=== PATIENT | male | born 1940 | race Caucasian/White ===

== ENCOUNTER → 2017-07-01 | Outpatient (CLI) | payer MEDICARE, OTHER ==
[~2017-07-01] VITALS: Ht 185.4 cm; Wt 78.1 kg
[~2017-07-01] MED LIST: ASPI81CH37 CHEW; CHLORHEXIDINE GLUCONATE 2 % 1 PACK (2 CLOTHS) TOPICAL PRN; DEXTROSE 5% IN WATE 1000ML INJ 1,000 ML IV SCH; INSULIN HUMAN REGULAR 1,000 UNITS/10 ML VIAL SQ PRN; LACTATED RINGER'S 1000 ML IV PRN; LIDOCAINE HCL 1% PF 5 ML AMPULE OTHER ONE; METOPROLOL TARTRATE 25 MG TAB PO PRN; POVIDONE IODINE 5% (ANTISEPSIS KIT) 4 APPLICATIONS EACH NARE PRN; PROPOFOL 200 MG/20 ML AMP IV ONE; SODIUM CHLORID 0.9% 500 ML IV PRN
[2017-07-01 16:25] VITALS: BP 147/68; PULSE 64; RESP 16; TEMP 96.9; O2SAT 100
--- NOTE | 2017-07-02 08:38 | MR ---
cc: MERCY SIDDIQUI M.D., JOHN T. M.D. DATE: 07/01/2017 PREOPERATIVE DIAGNOSIS Large rectal polyp. POSTOPERATIVE DIAGNOSIS Large rectal polyp. PROCEDURE Total colonoscopy and partial polypectomy rectal polyp ANESTHESIA: Intravenous monitored anesthesia care SURGEON Dr. Julio. OPERATIVE FINDINGS This patient was referred to me by Dr. Mercy Siddiqui. He had several large polyps, one in the mid rectum and one in the transverse colon, transverse colon polyp was felt to be completely removed by Dr. Siddiqui and the area was tattooed. 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 I looked at the lesion in the office on flexible sigmoidoscopy in appeared to be an exophytic benign appearing lesion for this reason I wanted to do a repeat colonoscopy to possibly remove this lesion without surgical intervention. At colonoscopy the remainder of the colon was normal. The prep was only fair in the upper colon, I could see the tattooed area in the distal transverse colon and no polyp was seen there. He did have a large exophytic multilobular polyp, probably 45 cm in diameter in the rectum at about 9-10 cm on a rectal fold. This polyp was snared in about five pieces and about 70% of the polyp was removed. No other lesions were seen in the colon. OPERATIVE TECHNIQUE The patient was placed on table position, given intravenous monitored anesthesia care colonoscope was introduced through the anal canal taken up into the rectum where the polyp was identified. Multiple snares were done of the polyp removing five large pieces of the polyp. Once this was done there appeared to be a fairly broad based polyp remaining that was probably several centimeters wide although I am not totally certain whether this is still able to be fully snared good portion of the polyp was removed. After this was done hemostasis was excellent and the colonoscope was carried out through the sigmoid colon, descending colon, transverse colon, ascending colon to the cecum. The ileocecal valve was seen as well as the base the appendix. Scope was sequentially withdrawn circumferentially look at the mucosa getting a good look the mucosa although there was some cloudy liquid in the ascending colon the transverse colon was seen fairly clearly especially the area of the tattoo distal transverse colon No polyp was seen. Upon bringing the scope down through the rectum the polypectomy site appeared dry and the scope was removed. The patient tolerated procedure well and left the GI lab in good condition. I will see him in the office and a couple weeks and go over the biopsies with him a couple of days and have them back and decide whether repeat colonoscopy is warranted versus fairly low anterior resection. MD AC Loving/donald /7:38 PM /8:08 AM
--- NOTE | 2017-07-02 17:31 | EKG ---
Date Performed: 07/01/2017 Time Performed: 12:04:24 PTAGE: 77 years EKG: Sinus rhythm WITH OCCASIONAL SUPRAVENTRICULAR PREMATURE COMPLEXES POSSIBLE LEFT ATRIAL ENLARGEMENT RIGHT BUNDLE B RANCH BLOCK LEFT POSTERIOR FASCICULAR BLOCK ABNORMAL ECG NO PREVIOUS TRACING DOCTOR: Linda Michael Interpretating Date/Time 07/02/2017 17:29:38
== END ==
LOC: HSDC 11:21
PROVIDERS: ATTEND Colon & Rectal Surgery
DX: Z12.11 Encounter for screening for malignant neoplasm of colon (principal); Z86.010 Personal history of colon polyps; D12.8 Benign neoplasm of rectum; Z95.0 Presence of cardiac pacemaker; I48.91 Unspecified atrial fibrillation; Z79.82 Long term (current) use of aspirin
CPT/HCPCS: 00810; 45385; 88305; 93005; J7120

== ENCOUNTER → 2017-08-11 | Outpatient (CLI) | payer MEDICARE, OTHER ==
[~2017-08-11] MED LIST changes: -ASPI81CH37 CHEW; +ASPI81CH6 CHEW; -CHLORHEXIDINE GLUCONATE 2 % 1 PACK (2 CLOTHS) TOPICAL PRN; -DEXTROSE 5% IN WATE 1000ML INJ 1,000 ML IV SCH; +FURO1TAB62 PO; -INSULIN HUMAN REGULAR 1,000 UNITS/10 ML VIAL SQ PRN; -LACTATED RINGER'S 1000 ML IV PRN; -LIDOCAINE HCL 1% PF 5 ML AMPULE OTHER ONE; -METOPROLOL TARTRATE 25 MG TAB PO PRN; -POVIDONE IODINE 5% (ANTISEPSIS KIT) 4 APPLICATIONS EACH NARE PRN; -PROPOFOL 200 MG/20 ML AMP IV ONE; -SODIUM CHLORID 0.9% 500 ML IV PRN
[2017-08-11 08:53] LABS: AUTOMATED NEUTROPHIL # 4.1 TH/MM3 (1.8-7.7); BASOPHIL % 0.7 % (0.0-2.0); EOSINOPHIL # 0.3 TH/MM3 (0-0.4); EOSINOPHIL % 4.4 % (0.0-4.0); HEMO FLAGS DIFF FINAL; LYMPH % 22.5 % (9.0-44.0); LYMPHOCYTE # 1.5 TH/MM3 (1.0-4.8); MEAN CELL VOLUME 87.8 FL (80.0-100.0); MEAN CORPUSCULAR HEMOGLOBIN 29.1 PG (27.0-34.0); MEAN CORPUSCULAR HGB CONC 33.1 % (32.0-36.0); MONO % 11.5 % (0.0-8.0); NEUT % 60.9 % (16.0-70.0); PLATELET COUNT 195 TH/MM3 (150-450); RED BLOOD COUNT 4.45 MIL/MM3 (4.50-5.90); RED CELL DISTRIBUTION WIDTH 16.4 % (11.6-17.2); WHITE BLOOD COUNT 6.8 TH/MM3 (4.0-11.0)
[2017-08-11 08:54] LABS: BLOOD, URINE NEG (NEG); COMMENT (UR) CULT NOT INDICATED; CULTURE IF INDICATED CULT NOT INDICATED; GLUCOSE,URINE NEG (NEG); KETONE, URINE NEG (NEG); MUCUS URINE FEW /lpf (OCC); NITRITE,URINE NEG (NEG); SQUAMOUS EPITHELIAL CELL URINE <1 /hpf (0-5); URINE COLOR YELLOW (YELLW/STRAW)
[2017-08-11 09:22] LABS: ANION GAP 6 MEQ/L (5-15); AST (GOT) 26 U/L (15-37); BICARBONATE 27.7 MEQ/L (21.0-32.0); BLOOD UREA NITROGEN 28 MG/DL (7-18); CHLORIDE 105 MEQ/L (98-107); GLOMERULAR FILTRATION RATE 41 ML/MIN (>89); GLUCOSE,FASTING 166 MG/DL (74-99); POTASSIUM 5.5 MEQ/L (3.5-5.1); SODIUM (NA) 139 MEQ/L (136-145)
[2017-08-11 09:26] LABS: ALKALINE PHOSPHATASE 103 U/L (45-117); ALT (GPT) 40 U/L (12-78); TOTAL BILIRUBIN ADULT 1.3 MG/DL (0.2-1.0)
--- NOTE | 2017-08-11 10:10 | RADRPT ---
EXAM DATE/TIME: 08/11/2017 08:58 [facility] COMPARISON: No previous studies available for comparison. INDICATIONS : Evaluate for pneumonia, pneumothorax, or communicable disease. Pre op for transanal excision of recta l polyp. MEDICAL HISTORY : Diabetes mellitus type II. A-fib. Rectal mass/polyps. SURGICAL HISTORY : Pacemaker. Cardiac stent. ENCOUNTER: Initial ACUITY: 1 day PAIN SCORE: 0/10 LOCATION: chest FINDINGS: PA and lateral views of the chest demonstrate the lungs to be symmetrically aerated without evidence of mass, infiltrate or effusion. The cardiomediastinal contours are unremarkable. Osseous structure s are intact. The patient is status post median sternotomy for coronary artery bypass grafting proced ure. Epicardial pacer wires are noted. The there is a left subclavian AV sequential transvenous pacer in place. There is apparent chronic scarring in the right upper lobe with bullous change. CONCLUSION: 1. No definite acute cardiopulmonary disease. 2. 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 3. Status post median sternotomy. Aashish Oquendo MD on August 11, 2017 at 10:07 Board Certified Radiologist. This report was verified electronically.
== END ==
LOC: CPRE 08:03
PROVIDERS: ATTEND Colon & Rectal Surgery
DX: Z01.812 Encounter for preprocedural laboratory examination (principal); Z01.811 Encounter for preprocedural respiratory examination; D12.8 Benign neoplasm of rectum
CPT/HCPCS: 36415; 71020; 80053; 81001; 85025

== ENCOUNTER → 2017-08-18 | Day surgery (SDC) | payer MEDICARE, OTHER ==
[~2017-08-18] VITALS: Ht 185.4 cm; Wt 77.9 kg
[~2017-08-18] MED LIST changes: -ASPI81CH6 CHEW; +BACITRACIN TOP OINT 15 GM TUBE ONE; +CHLORHEXIDINE GLUCONATE 2 % 1 PACK (2 CLOTHS) TOPICAL PRN; +DEXAMETHASONE SOD PHOS 4 MG/ML VIAL IV ONE; +DO NOT ADM ANY ANTICOAGULANT DRUGS PRN; +INSULIN HUMAN REGULAR 1,000 UNITS/10 ML VIAL SQ PRN; +LACTATED RINGER'S 1000 ML IV PRN; +LIDOCAINE 0.5%/EPINEPHrine 1:200,000 SOLN 50 ML VIAL ONE; +LIDOCAINE 1%/EPINEPHrine 1:100,000 SOLN 50 ML VIAL ONE; +LIDOCAINE HCL 1% PF 5 ML SYRINGE OTHER ONE; +METOPROLOL TARTRATE 25 MG TAB PO PRN; +MIDAZOLAM HCL 2 MG/2 ML VIAL IV ONE; +ONDANSETRON HCL 4 MG/2 ML VIAL IV ONE; +POVIDONE IODINE 5% (ANTISEPSIS KIT) 4 APPLICATIONS EACH NARE PRN; +PROPOFOL 200 MG/20 ML AMP IV ONE; +SODIUM CHLORID 0.9% 500 ML IV PRN
[2017-08-18 15:50] VITALS: BP 165/70; PULSE 64; RESP 16; TEMP 97.5; O2SAT 99
--- NOTE | 2017-08-19 07:24 | MP ---
cc: Laura JULIO DATE OF SURGERY 08/18/2017 PREOPERATIVE DIAGNOSIS Rectal polyp. POSTOPERATIVE DIAGNOSIS Rectal polyp. PROCEDURE Transanal excision of rectal polyp. ANESTHESIA General endotracheal SURGEON Dr. Julio REED OR WIND INSTRUMENT REPAIRER Dr. Ly ESTIMATED BLOOD LOSS Minimal OPERATIVE FINDINGS This patient was originally seen referred by Dr. Austin Torre for a rectal polyps that he felt was too large to remove colonoscopically. The patient also had a large polyp in the transverse colon which Dr. Torre removed and tattooed for observation. A repeat colonoscopy was done by me about a month and half ago and this rectal polyp was at about 9 cm. It was probably 4 cm in diameter and it was snared about 70% of the surface removed. I felt that this was possibly able to be removed transanally and offered the patient EMR at the [facility] or attempt a transanal excision by me. At surgery, we were able to transanally excise this lesion. It was in the left anterior position. OPERATIVE TECHNIQUE The patient was placed on the table in the supine position. After adequate general endotracheal anesthesia, the legs were placed in an exaggerated lithotomy position and the perineum was prepped and draped in the usual manner. A Varela bivalve retractor was inserted into the anal canal and the polyp was observed. The polyp was grasped with an Allis clamp prolapsed out and found to be anterior and left anterior in nature. It was approximately 4 cm long and 1 cm wide on a fold. Two anterior stay sutures were placed in the rectal wall and the polyp was excised fully with electrocautery with a 1/2 cm margin. Once this was done, the polyp was fully removed. The mucosal and muscular layer were approximated with interrupted 3-0 Vicryl sutures. It should be mentioned that a portion of the muscle under the polyp was removed. In one area, a small amount of fat was seen. The wound was fully closed transversely with interrupted 3-0 Vicryl's as mentioned. Once this was done, the suture site was palpated and the digital finger was able to go through the rectum at that level. I then used a rigid proctosigmoidoscope and placed into the rectum and I could go through the area with the rigid proctosigmoidoscope. Hemostasis was excellent and the mucosal edges were all approximated. The scope was removed. Sponge, needle and instrument counts were reported as correct. The estimated blood loss was minimal. The patient tolerated the procedure well and left the operating room in good condition. MD AC Loving/DIOGO /4:27 PM /7:12 AM
== END | disposition home or self-care (01) ==
LOC: HSDC 11:11
PROVIDERS: ATTEND Colon & Rectal Surgery
DX: D12.8 Benign neoplasm of rectum (principal)
CPT/HCPCS: 00902; 45171; 84132; 88307; J1100; J2250; J2405; J3010; J7120; 88305